=== PATIENT | male | born 1940 | race Caucasian/White ===

== ENCOUNTER → 2021-05-09 | Outpatient (CLI) | payer MEDICARE ==
--- NOTE | 2021-05-09 15:42 | US ---
EXAMINATION TYPE: US scrotum with doppler. Grayscale and color Doppler Duplex imaging performed of derik skinner scrotum. DATE OF EXAM: 05/09/2021 COMPARISON: NONE CLINICAL HISTORY: R10.2 Groin pain, N49.2 Testicle pain. EXAM MEASUREMENTS: Patient denies pain and states that he is here for swelling on left. TESTICLES: Right Testicle: 3.7 x 2.0 x 3.2 cm Left Testicle: 4.2 x 2.6 x 2.7cm EPIDIDYMIS HEAD: Right Epididymis: May be enlarged, there is apparent mass effect on the right testis Left Epididymis: 1.6 cm, small 3mm cyst, excessive increase in vascularity to left epididymis. Doppler performed to assess for testicular vascularity; bilateral color flow and waveforms are seen Left hydroceles: 5.4 x 1.5 x 4.2cm Presence of varicoceles: no Right testicle appears to have multiple masses in transverse plane, however when senior scientist scans in sagittal plane these questionable areas appear to elongate and it becomes unclear whether they are i ntra or extra testicular. These areas also appear superior to testicle. IMPRESSION: There is a left hydrocele present. Correlate for epididymitis on the left. Findings sugge st an extratesticular mass on the right, consider urology consult, CT for better evaluation, consider hernia
--- NOTE | 2021-05-09 16:25 | CT ---
EXAMINATION TYPE: CT abdomen pelvis wo con DATE OF EXAM: 05/09/2021 COMPARISON: Correlation scrotal ultrasound 05/09/2021 HISTORY: 81-year-old male Groin/testicle pain CT DLP: 1059 mGycm. Automated exposure control for dose reduction was used. TECHNIQUE: Contiguous axial scanning of the abdomen and pelvis without IV contrast. Coronal and sagit luciano reconstructions performed. FINDINGS: Heart normal size without pericardial effusion. Emphysematous change in the visualized lower lungs wi thout pleural effusion. There may be a tiny hiatal hernia. Noncontrast appearance of the liver, gallbladder, adrenal glands, spleen, and atrophic pancreas show no gross abnormality. Large cyst exophytic from the right kidney measuring up to 11.7 cm. Symmetric bilateral perinephric edema probably senescent change. Moderate atherosclerotic calcifications abdominal aorta and common iliac arteries. No dilated small bowel, free fluid, or free air. No mesenteric or retroperitoneal lymphadenopathy. Moderate stool burden. No pericolonic inflammatory change. Mid to distal sigmoid diverticulosis. There is an 11.1 x 4.7 cm fat density mass along the right iliopsoas psoas anterior to the right hip. Prominent urinary bladder distention. There is prostatomegaly at 5.2 cm wide. Prominent prostatic ure thra may reflect prior TURP but with soft tissue impression/deformation, refer to coronal image 78 an d axial images 117 and 118. No abnormal fluid collection pelvis or pelvic lymphadenopathy. Moderate left-sided scrotal hydrocele. It appears to be a small right-sided hydrocele. Unable to tracy rly identify an extratesticular or intrascrotal anatomy accurately. Further urology referral will be recommended to exclude any scrotal mass. Bones: Superior endplate Schmorl's node L2. Hypertrophic facet arthropathy with grade 1 retrolisthesi s L3-L4. Moderate degenerative disc disease L5-S1. IMPRESSION: 1. Large exophytic 11.7 cm cyst from the right kidney. Correlate estimate this is causing any sympto ms relating to mass effect. 2. Prostatomegaly (5.2 cm wide) with a prominent prostatic urethra; query any history of prior TURP. However, we note some soft tissue impression deforming the prostatic urethra (coronal image 78). Cor relate with PSA values to exclude underlying prostate cancer. 3. Moderate left-sided scrotal hydrocele and small on the right. Unable to adequately identify any s crotal mass on this noncontrast CT. Recommend urology referral for further assessment. Left-sided epi didymitis is not excluded based on the ultrasound findings. 4. 11.1 x 4.7 cm fat density mass along the right iliopsoas anterior to the right hip. Findings like ly represent a lipoma. Given patient's demographics and lesion size, clinical follow-up to exclude an y enlarging mass as low-grade liposarcoma would be included in the differential. A 6-12 month follow- up CT can be considered as well.
== END | disposition home or self-care (01) ==
LOC: RADUSWWP 14:31
PROVIDERS: ATTEND Family Medicine
DX: N40.0 Benign prostatic hyperplasia without lower urinary tract symptoms (principal); N43.3 Hydrocele, unspecified; R22.41 Localized swelling, mass and lump, right lower limb
CPT/HCPCS: 74176; 76870; 93975

== ENCOUNTER → 2021-09-29 | Outpatient (CLI) | payer MEDICARE ==
--- NOTE | 2021-09-30 07:21 | NM ---
EXAMINATION TYPE: NM DatScan Brain SPECT DATE OF EXAM: 09/29/2021 COMPARISON: CT brain December 15, 2015 HISTORY: Tremors and memory loss. Essential tremor. TECHNIQUE: 10 drops of Lugol's solution was administered 1 hour prior to injection as a thyroid bloc daniel agent. After the administration of 4.35 mCi I-123 Ioflupane DaTscan. Images obtained 3 hours p ost injection. SPECT images of the brain were acquired with axial and coronal reconstructions. FINDINGS: The DaTSCAN demonstrates balanced striatal loss to the caudate and putamina nucleii in the striata. This appearance is consistent with the loss of the pre-synaptic dopaminergic terminals. IMPRESSION: This abnormal appearance is supportive of a clinical diagnosis of DLB, idiopathic PD, Parkinson?s dementia complex, or PS.
== END | disposition home or self-care (01) ==
LOC: RADNMMAIN 10:51
PROVIDERS: ATTEND Psychiatry & Neurology Neurology
DX: G25.0 Essential tremor (principal)
CPT/HCPCS: 78803; A9584

== ENCOUNTER → 2022-05-17 | Outpatient (CLI) | payer MEDICARE ==
--- NOTE | 2022-05-19 06:53 | CT ---
EXAMINATION TYPE: CT ChestAbdPelvis w con DATE OF EXAM: 05/17/2022 COMPARISON: CT abdomen and pelvis May 09, 2021 HISTORY: h/o skin CA, abnormal weight loss, 40 pounds in [address] DLP: 1510 mGycm. Automated Exposure Control for Dose Reduction was Utilized. CONTRAST: CT scan of the thorax, abdomen and pelvis is performed with oral and with IV Contrast, patient inject ed with 100 mL of Isovue 300. FINDINGS: LUNGS: Mild underlying emphysematous changes present. No suspicious new nodules or masses. Stable 9 m m nodule or nodular scarring in the lingula axial image 53 from prior study. No pleural effusion or p neumothorax is seen. MEDIASTINUM: There are no greater than 1 cm hilar or mediastinal lymph nodes. Tiny pericardial effus ion is seen. No cardiomegaly. Coronary artery calcifications are present which is noted marked under lying coronary artery disease. Ascending aorta measures up to 3.6 cm in diameter. There are calcifica tions the level of the mitral and aortic valves identified. LIVER/GB: No significant abnormality is appreciated. PANCREAS: Mild to moderate generalized fat replaced atrophy redemonstrated greatest in the inferior h ead. SPLEEN: No significant abnormality is seen. ADRENALS: No significant abnormality is seen. KIDNEYS: Large partially exophytic thin-walled nearly 13.0 cm cyst coronal image 70 from the right ki dney is redemonstrated with local mass effect pushing the right kidney anteriorly. BOWEL: Oral contrast does not reach level of the terminal ileum making evaluation of distal bowel sli ghtly suboptimal. No suspicious small or large bowel dilatation is seen. Mild to moderate fecal promi nence particularly in the transverse colon. Some diverticula in the redundant sigmoid colon. No CT ev idence for acute diverticulitis. GENITAL ORGANS: Mildly enlarged prostate consistent with BPH redemonstrated. Stable curvilinear low d ensity area in the posterior right prostate axial image 125 likely reflecting TURP type defect in ect atic urethra. LYMPH NODES: No greater than 1cm abdominal or pelvic lymph nodes are appreciated. OSSEOUS STRUCTURES: Multilevel spurring in the spine moderate to severe disc space narrowing affectin g disc phenomenon at lumbosacral junction. Mild height loss along the anterior superior L2 endplate. OTHER: Persistent predominantly fat density oval lesion measuring 9.7 x 5.2 cm and the right iliopsoa s anterior to the right hip coronal image 53 for reference. Overall stability favors benign lipoma. Moderate peripheral calcified plaque of the aorta extends into branch vessels IMPRESSION: No obvious new mass or adenopathy to suggest neoplasm. Other findings as noted above not significantly changed from prior CT .
== END | disposition home or self-care (01) ==
LOC: RADCTMAIN 13:54
PROVIDERS: ATTEND Internal Medicine Critical Care Medicine
DX: R63.4 Abnormal weight loss (principal)
CPT/HCPCS: 82565; 84520; 71260; 74177; 36415; Q9967

== ENCOUNTER 2023-02-23 16:16 | Inpatient (IN) | payer MEDICARE ==
--- NOTE | 2023-02-23 17:24 | ED ---
Fall HPI - General Chief Complaint: Fall Stated Complaint: poss hip fracture Time Seen by Provider: 02/23/23 17:18 Source: patient, EMS, RN notes reviewed, old records reviewed Mode of arrival: EMS Limitations: no limitations - History of Present Illness Initial Comments: This is a 82-year-old male to the ER today. Presents today for evaluation after fall. Increasing left leg pain left hip pain after this fall earlier today. Patient's fall was preceded by an episode of some dizziness and off-balance. But no headache no neck pain did not his head or pass out. No chest pain or shortness of breath. Patient's main concern is a 6 month pain in his left leg and his left hip. Patient is not on blood thinners MD Complaint: fall -: hour(s) Fall From: standing When Fall Occurred: 4-6 hours [employer] Fall Witnessed: no, yes, by family Place Fall Occurred: home Loss of Consciousness: none Prolonged Down Time?: no Symptoms Prior to Fall: none Location - Extremities: Left: Thigh, Leg Severity: severe Severity scale (1-10): 10 Quality: stabbing Context: tripped/slipped Associated Symptoms: denies - Related Data Home Medications Medication Instructions Recorded Confirmed Aspirin EC [Ecotrin Low Dose] 81 mg PO MOWEFR 02/23/23 02/23/23 Atorvastatin [Lipitor] 10 mg PO MOWEFR 02/23/23 02/23/23 Carbidopa-Levodopa 25-100 mg 1 tab PO TID 02/23/23 02/23/23 [Sinemet 25-100 mg] D-Mannose Supplement (Unkown 1 tab PO DAILY 02/23/23 02/23/23 Strength) Ezetimibe [Zetia] 10 mg PO DAILY 02/23/23 02/23/23 Fluticasone Propion/Salmeterol 2 puff INHALATION RT-DAILY@1200 02/23/23 02/23/23 [Fluticasone-Salmeterol 500-50] Ipratropium Nebulized [Atrovent 0.5 mg INHALATION RT-QID PRN 02/23/23 02/23/23 Nebulized 0.2 MG/ML] Magnesium 250 mg PO MOWEFR 02/23/23 02/23/23 Metoprolol Succinate [Metoprolol 12.5 mg PO DAILY 02/23/23 02/23/23 Succinate ER] Midodrine HCl [ProAmantine] 2.5 mg PO TID 02/23/23 02/23/23 Tamsulosin [Flomax] 0.4 mg PO DAILY 02/23/23 02/23/23 Ubidecarenone [Coenzyme Q10] 100 mg PO DAILY 02/23/23 02/23/23 Previous Rx's Medication Instructions Recorded Aspirin [Adult Low Dose Aspirin EC] 81 mg PO BID #60 tab 02/27/23 Docusate [Colace] 100 mg PO BID #60 capsule 02/27/23 HYDROcodone/APAP 7.5-325MG [Julian 1 - 2 each PO Q6HR PRN #42 tab 02/27/23 7.5-325] Ipratropium-Albuterol Nebulize 3 ml INHALATION BID each 02/27/23 [Duoneb 0.5 mg-3 mg/3 ml Soln] Ondansetron [Zofran] 4 mg PO Q8HR PRN #21 tab 02/27/23 Allergies Allergy/AdvReac Type Severity Reaction Status Date / Time No Known Allergies Allergy Verified 02/23/23 20:33 Review of Systems ROS Statement: Those systems with pertinent positive or pertinent negative responses have been documented in the HPI. ROS Other: All systems not noted in ROS Statement are negative. Past Medical History Past Medical History: Hyperlipidemia, Hypertension Additional Past Medical History / Comment(s): Parkinson's disease History of Any Multi-Drug Resistant Organisms: None Reported Additional Past Surgical History / Comment(s): breast removal Smoking Status: Former smoker Past Alcohol Use History: Occasional Past Drug Use History: None Reported General Exam - General Exam Comments Initial Comments: Severe left hip pain Limitations: no limitations General appearance: alert, in no apparent distress, anxious Head exam: Present: atraumatic, normocephalic, normal inspection Eye exam: Present: normal appearance, PERRL, EOMI. Absent: scleral icterus, conjunctival injection, periorbital swelling ENT exam: Present: normal exam, mucous membranes moist Neck exam: Present: normal inspection. Absent: tenderness, meningismus, lymphadenopathy Respiratory exam: Present: normal lung sounds bilaterally. Absent: respiratory distress, wheezes, rales, rhonchi, stridor Cardiovascular Exam: Present: regular rate, normal rhythm, normal heart sounds. Absent: systolic murmur, diastolic murmur, rubs, gallop, clicks GI/Abdominal exam: Present: soft, normal bowel sounds. Absent: distended, tenderness, guarding, rebound, rigid Extremities exam: Present: normal inspection, full ROM, normal capillary refill. Absent: tenderness, pedal edema, joint swelling, calf tenderness Back exam: Present: normal inspection Neurological exam: Present: alert, oriented X3, CN II-XII intact Psychiatric exam: Present: normal affect, normal mood Skin exam: Present: warm, dry, intact, normal color. Absent: rash Course Vital Signs 02/23/23 02/23/23 02/23/23 16:31 18:28 21:04 Temperature 98.0 F 98.1 F Pulse Rate 66 65 74 Respiratory 18 18 18 Rate Blood Pressure 145/77 158/88 163/80 O2 Sat by Pulse 96 96 94 L Oximetry 02/23/23 21:31 Temperature Pulse Rate 75 Respiratory 20 Rate Blood Pressure 108/88 O2 Sat by Pulse Oximetry - Reevaluation(s) Reevaluation #1: 02/23/23 20:16 Medical records reviewed Reevaluation #2: 02/23/23 20:16 Patient has improved pain control here in the ER Reevaluation #3: 02/23/23 20:16 Patient informed results questions answered Reevaluation #4: 02/23/23 20:16 Was pt. sent in by a medical professional or institution ([facility], MUSEUM GUIDE, urgent care, hospital, or fdc...) When possible be specific @ -no Did you speak to anyone other than the patient for history (EMS, parent, family, police, friend...)? What history was obtained from this source @ -no Did you review nursing and triage notes (agree or disagree)? Why? @ -agree Are old charts reviewed (outside hosp., previous admission, EMS record, old EKG, old radiological studies, urgent care reports/EKG's, fdc records)? Report findings @ -yes Differential Diagnosis (chest pain, altered mental status, abdominal pain women, abdominal pain men, vaginal bleeding, weakness, fever, dyspnea, syncope, headache, dizziness, GI bleed, back pain, seizure, CVA, palpatations, mental hea lth, musculoskeletal)? @ -prior EKG interpreted by me (3pts min.). @ -yes X-rays interpreted by me (1pt min.). @ -yes CT interpreted by me (1pt min.). @ -no U/S interpreted by me (1pt. min.). @ -no What testing was considered but not performed or refused? (CT, X-rays, U/S, labs)? Why? @ -none What meds were considered but not given or refused? Why? @ -none Did you discuss the management of the patient with other professionals (professionals i.e. , PA, MUSEUM GUIDE, lab, RT, psych nurse, social psychologist, leather tacker, teacher, senior compliance officer, case management assistant)? Give summary @ -no Was smoking cessation discussed for >3mins.? @ -no Was critical care preformed (if so, how long)? @ -no Were there social determinants of health that impacted care today? How? (Homelessness, low income, unemployed, alcoholism, drug addiction, transportation, low edu. Level, literacy, decrease access to med. care, group home, r ehab)? @ -none Was there de-escalation of care discussed even if they declined (Discuss DNR or withdrawal of care, Hospice)? DNR status @ -no What co-morbidities impacted this encounter? (DM, HTN, Smoking, COPD, CAD, Cancer, CVA, ARF, Chemo, Hep., AIDS, mental health diagnosis, sleep apnea, morbid obesity)? @ -none Was patient admitted / discharged? Hospital course, mention meds given and route , prescriptions, significant lab abnormalities, going to OR and other pertinent info. @ - 82 male to the emergency department today for evaluation of fall trip and fall resulting in left hip fracture. patient to be admitted to Orthopedic evaluation and treatment Admitted Undiagnosed new problem with uncertain prognosis? @ -no Drug Therapy requiring intensive monitoring for toxicity (Heparin, Nitro, Insulin, Cardizem)? @ -no Were any procedures done? @ -no Diagnosis/symptom? @ -Left hip fracture fall Acute, or Chronic, or Acute on Chronic? @ -Acute Uncomplicated (without systemic symptoms) or Complicated (systemic symptoms)? @ -Complicated Side effects of treatment? @ -no Exacerbation, Progression, or Severe Exacerbation? @ -exacerbation Poses a threat to life or bodily function? How? (Chest pain, [place], [place], pneumonia, PE, COPD, DKA, ARF, appy, cholecystitis, CVA, Diverticulitis, Homicidal, Suicidal, threat to staff... and all critical care pts) @ -yes with significant trauma from fall - Consultations Consultation #1: Spoke with orthopedics regarding admission there agreeable Medical Decision Making - Medical Decision Making 82 male to the emergency department today for evaluation of fall trip and fall resulting in left hip fracture. patient to be admitted to Orthopedic evaluation and treatment - Lab Data Result diagrams: 02/26/23 06:42 02/26/23 06:42 Lab Results 02/23/23 02/23/23 02/23/23 Range/Units 18:31 18:31 18:31 WBC 23.1 H (3.8-10.6) k/uL RBC 4.92 (4.30-5.90) m/uL Hgb 14.7 (13.0-17.5) gm/dL Hct 43.9 (39.0-53.0) % MCV 89.3 (80.0-100.0) fL MCH 29.9 (25.0-35.0) pg MCHC 33.4 (31.0-37.0) g/dL RDW 13.4 (11.5-15.5) % Plt Count 243 (150-450) k/uL MPV 8.9 Neutrophils % 85 % Lymphocytes % 9 % Monocytes % 4 % Eosinophils % 1 % Basophils % 0 % Neutrophils # 19.7 H (1.3-7.7) k/uL Lymphocytes # 2.2 (1.0-4.8) k/uL Monocytes # 0.9 (0-1.0) k/uL Eosinophils # 0.2 (0-0.7) k/uL Basophils # 0.0 (0-0.2) k/uL PT 11.3 (9.0-12.0) sec INR 1.1 (<1.2) APTT 22.3 (22.0-30.0) sec Sodium 133 L (137-145) mmol/L Potassium 5.3 H (3.5-5.1) mmol/L Chloride 103 (98-107) mmol/L Carbon Dioxide 24 (22-30) mmol/L Anion Gap 6 mmol/L BUN 27 H (9-20) mg/dL Creatinine 0.76 (0.66-1.25) mg/dL Est GFR (CKD-EPI)AfAm >90 (>60 ml/min/1.73 sqM) Est GFR (CKD-EPI)NonAf 84 (>60 ml/min/1.73 sqM) Glucose 80 (74-99) mg/dL Plasma Lactic Acid Norbert (0.7-2.0) mmol/L Calcium 8.9 (8.4-10.2) mg/dL Phosphorus 3.1 (2.5-4.5) mg/dL Magnesium 2.2 (1.6-2.3) mg/dL Total Bilirubin 1.4 H (0.2-1.3) mg/dL AST 42 (17-59) U/L ALT 17 (4-49) U/L Alkaline Phosphatase 54 (38-126) U/L Troponin I (0.000-0.034) ng/mL Total Protein 6.4 (6.3-8.2) g/dL Albumin 3.6 (3.5-5.0) g/dL Urine Color Urine Appearance (Clear) Urine pH (5.0-8.0) Ur Specific [place] (1.001-1.035) Urine Protein (Negative) Urine Glucose (UA) (Negative) Urine Ketones (Negative) Urine Blood (Negative) Urine Nitrite (Negative) Urine Bilirubin (Negative) Urine Urobilinogen (<2.0) mg/dL Ur Leukocyte Esterase (Negative) 02/23/23 02/23/23 02/23/23 Range/Units 18:31 18:31 18:31 WBC (3.8-10.6) k/uL RBC (4.30-5.90) m/uL Hgb (13.0-17.5) gm/dL Hct (39.0-53.0) % MCV (80.0-100.0) fL MCH (25.0-35.0) pg MCHC (31.0-37.0) g/dL RDW (11.5-15.5) % Plt Count (150-450) k/uL MPV Neutrophils % % Lymphocytes % % Monocytes % % Eosinophils % % Basophils % % Neutrophils # (1.3-7.7) k/uL Lymphocytes # (1.0-4.8) k/uL Monocytes # (0-1.0) k/uL Eosinophils # (0-0.7) k/uL Basophils # (0-0.2) k/uL PT (9.0-12.0) sec INR (<1.2) APTT (22.0-30.0) sec Sodium (137-145) mmol/L Potassium (3.5-5.1) mmol/L Chloride (98-107) mmol/L Carbon Dioxide (22-30) mmol/L Anion Gap mmol/L BUN (9-20) mg/dL Creatinine (0.66-1.25) mg/dL Est GFR (CKD-EPI)AfAm (>60 ml/min/1.73 sqM) Est GFR (CKD-EPI)NonAf (>60 ml/min/1.73 sqM) Glucose (74-99) mg/dL Plasma Lactic Acid Norbert 1.3 (0.7-2.0) mmol/L Calcium (8.4-10.2) mg/dL Phosphorus (2.5-4.5) mg/dL Magnesium (1.6-2.3) mg/dL Total Bilirubin (0.2-1.3) mg/dL AST (17-59) U/L ALT (4-49) U/L Alkaline Phosphatase (38-126) U/L Troponin I 0.017 (0.000-0.034) ng/mL Total Protein (6.3-8.2) g/dL Albumin (3.5-5.0) g/dL Urine Color Yellow Urine Appearance Clear (Clear) Urine pH 5.5 (5.0-8.0) Ur Specific [place] 1.020 (1.001-1.035) Urine Protein Negative (Negative) Urine Glucose (UA) Negative (Negative) Urine Ketones Negative (Negative) Urine Blood Negative (Negative) Urine Nitrite Negative (Negative) Urine Bilirubin Negative (Negative) Urine Urobilinogen <2.0 (<2.0) mg/dL Ur Leukocyte Esterase Negative (Negative) - EKG Data -: EKG Interpreted by Me (EKG sinus 67 UT 167 QRS 138 QTc 410) - Radiology Data Radiology results: report reviewed (Chest x-ray negative for acute disease x-ray left hip positive fracture), image reviewed Disposition Clinical Impression: Fall, Closed left hip fracture Disposition: ADMITTED IP TO THIS [facility] Condition: Good Is patient prescribed a controlled substance at d/c from ED?: No Time of Disposition: :00
--- NOTE | 2023-02-23 17:55 | XR ---
EXAMINATION TYPE: XR Hip LT and AP Pelvis DATE OF EXAM: 02/23/2023 5:44 PM INDICATION: Patient age:Male; 82 years old; Reason for study: fall; PHH. COMPARISON: None. TECHNIQUE: The left hip was examined in the frontal and lateral projections and a AP pelvis. FINDINGS/IMPRESSION: Proximal left femoral neck fracture with mild displacement. The remainder of the osseous structures a ppear intact.
--- NOTE | 2023-02-23 17:58 | XR ---
EXAMINATION TYPE: XR chest 1V DATE OF EXAM: 02/23/2023 5:44 PM COMPARISON: Chest radiographs from 12/15/2015. TECHNIQUE: XR chest 1V Frontal view of the chest. CLINICAL INDICATION:Male, 82 years old with history of fall; FINDINGS: Lungs/Pleura: There is flattening of the diaphragm with increased lucency of the lungs. No evidence o f pneumothorax, pleural effusion or focal consolidation. Pulmonary vascularity: Unremarkable. Heart/mediastinum: Cardiomediastinal silhouette is unremarkable. Musculoskeletal: No acute osseous pathology. IMPRESSION: 1. No acute cardiopulmonary disease process. 2. COPD changes.
[2023-02-23] MEDS ORDERED: SODIUM CHLORIDE 0.9% 1,000 ML IV STA (18:23)
[2023-02-23] MEDS ORDERED: ONDANSETRON 4 MG/2 ML VIAL IVP STA (18:23)
[2023-02-23] MEDS ORDERED: MORPHINE SULFATE 4 MG/ML SYRINGE IV STA (18:23)
[2023-02-23 19:04] LABS: Basophils % (A) 0 %; Eosinophils # (A) 0.2 k/uL (0-0.7); Eosinophils % (A) 1 %; HCT 43.9 % (39.0-53.0); HGB 14.7 gm/dL (13.0-17.5); Lymphocytes # (A) 2.2 k/uL (1.0-4.8); Lymphocytes % (A) 9 %; MCH 29.9 pg (25.0-35.0); MCHC 33.4 g/dL (31.0-37.0); MCV 89.3 fL (80.0-100.0); Mean Platelet Volume 8.9; Monocytes # (A) 0.9 k/uL (0-1.0); Monocytes % (A) 4 %; Neutrophils # (A) 19.7 k/uL (1.3-7.7); Neutrophils % (A) 85 %; Platelet Count 243 k/uL (150-450); RBC 4.92 m/uL (4.30-5.90); RDW 13.4 % (11.5-15.5); WBC 23.1 k/uL (3.8-10.6)
[2023-02-23 19:12] LABS: ALT 17 U/L (4-49); AST 42 U/L (17-59); African American GFR (CKD) >90 (>60 ml/min/1.73 sqM); Albumin 3.6 g/dL (3.5-5.0); Alkaline Phosphatase 54 U/L (38-126); Anion Gap 6 mmol/L; Blood Urea Nitrogen 27 mg/dL (9-20); Calcium 8.9 mg/dL (8.4-10.2); Carbon Dioxide 24 mmol/L (22-30); Chloride 103 mmol/L (98-107); Glucose 80 mg/dL (74-99); Magnesium 2.2 mg/dL (1.6-2.3); Non-African American GFR(CKD) 84 (>60 ml/min/1.73 sqM); Phosphorus 3.1 mg/dL (2.5-4.5); Sodium 133 mmol/L (137-145); Total Bilirubin 1.4 mg/dL (0.2-1.3); Total Protein 6.4 g/dL (6.3-8.2)
[2023-02-23 19:14] LABS: INR 1.1 (<1.2); Partial Thromboplastin Time 22.3 sec (22.0-30.0); Potassium 5.3 mmol/L (3.5-5.1); Prothrombin Time 11.3 sec (9.0-12.0)
[2023-02-23 19:19] LABS: Appearance,Urine Clear (Clear); Bilirubin,Urine Negative (Negative); Blood,Urine Negative (Negative); Color,Urine Yellow; Glucose,Urine (UA) Negative (Negative); Ketones,Urine Negative (Negative); Leukocyte Esterase,Urine Negative (Negative); Nitrite,Urine Negative (Negative); PH, Urine 5.5 (5.0-8.0); Protein,Urine Negative (Negative); Urobilinogen,Urine <2.0 mg/dL (<2.0)
[2023-02-23] MEDS ORDERED: NALOXONE 0.4 MG/ML 1 ML VIAL IV PRN (20:13)
[2023-02-23] MEDS ORDERED: ONDANSETRON 4 MG/2 ML VIAL IVP PRN (20:13)
[2023-02-23] MEDS ORDERED: MORPHINE SULFATE 4 MG/ML SYRINGE IV PRN (20:13)
[2023-02-23] MEDS: SODIUM CHLORIDE 0.9% 1,000 ML IV SCH (20:27)
[2023-02-23] MEDS ORDERED: HYDROmorphone 1 MG/ML 1 ML SYRINGE IVP STA (21:13)
[2023-02-24] MEDS: HYDROmorphone 1 MG/ML 1 ML SYRINGE IVP PRN ×3 (06:14→18:12)
[2023-02-24] MEDS: PANTOPRAZOLE 40 MG/10 ML VIAL IV SCH (08:15)
[2023-02-24 09:21] LABS: Basophils # (A) 0.06 X 10*3/uL (0.00-0.10); Basophils % (A) 0.4 %; Eosinophils # (A) 0.29 X 10*3/uL (0.04-0.35); Eosinophils % (A) 1.7 %; HGB 14.2 d/dL (13.0-17.0); Lymphocytes # (A) 1.88 X 10*3/uL (0.90-5.00); MCH 29.2 pg (27.0-32.0); MCHC 32.3 d/dL (32.0-37.0); MCV 90.5 FL (80.0-97.0); Mean Platelet Volume 10.9 FL (9.5-12.2); Monocytes # (A) 1.08 X 10*3/uL (0.20-1.00); Monocytes % (A) 6.3 %; NRBC Per 100 WBC 0 X 10*3/uL (0.00-0.01); Neutrophils # (A) 13.66 X 10*3/uL (1.80-7.70); Platelet Count 253 X 10*3/uL (140-440); RBC 4.86 X 10*6/uL (4.40-5.60); RDW 13.5 % (11.5-14.5); WBC 17.07 X 10*3/uL (4.50-10.00)
[2023-02-24] MEDS ORDERED: IPRATROPIUM 0.5 MG/2.5 ML NEBU INHALATION PRN (09:58)
[2023-02-24] MEDS ORDERED: IPRATROPIUM-ALBUTEROL 3 ML NEB INHALATION PRN (10:20)
[2023-02-24 10:23] LABS: ALT 16 U/L (10-49); AST 19 U/L (14-35); Albumin 3.5 d/dL (3.8-4.9); Albumin/Globulin Ratio 2.06 Ratio (1.60-3.17); Alkaline Phosphatase 67 U/L (41-126); BUN/Creat Ratio 21.67 Ratio (12.00-20.00); Blood Urea Nitrogen 19.5 mg/dL (9.0-27.0); Calcium 8.9 mg/dL (8.7-10.3); Chloride 106 mmol/L (96-109); Globulin 1.7 d/dL (1.6-3.3); Glucose 69 mg/dL (70-110); Magnesium 2.3 mg/dL (1.5-2.4); Phosphorus 3.3 mg/dL (2.4-5.1); Potassium 4.3 mmol/L (3.5-5.5); Sodium 140 mmol/L (135-145); Total Bilirubin 0.8 mg/dL (0.3-1.2); Total Protein 5.2 d/dL (6.2-8.2)
[2023-02-24] MEDS: SYMBICORT 160-4.5 MCG INHALER INHALATION SCH (10:25)
[2023-02-24] MEDS: IPRATROPIUM-ALBUTEROL 3 ML NEB INHALATION SCH ×3 (10:34→21:04)
[2023-02-24] MEDS: SODIUM CHLORIDE 0.9% 1,000 ML IV SCH (10:40)
[2023-02-24] MEDS: CARBIDOPA-LEVODOPA 25-100 MG 1 EACH TAB PO SCH ×3 (10:54→22:37)
--- NOTE | 2023-02-24 10:59 | P.HPOR ---
History of Present Illness H&P Date: 02/24/23 This is an 82-year-old male who is admitted for left hip fracture. Patient is seen and evaluated at bedside today with Dr. Quiros. Patient states that he fell at home in his kitchen. Patient states that he normally does not need any assistive devices to ambulate and lives at home with his . Patient's past medical history is significant for COPD, hyperlipidemia, hypertension and Parkinson's disease. Patient denies any fever/chills, numbness, weakness, tingling, abdominal pain, shortness of breath or chest pain. Review of Systems See HPI. Past Medical History Past Medical History: Cancer, COPD, Hyperlipidemia, Hypertension Additional Past Medical History / Comment(s): Parkinson's disease History of Any Multi-Drug Resistant Organisms: None Reported Past Surgical History: Heart Catheterization Additional Past Surgical History / Comment(s): breast removal Smoking Status: Former smoker Past Alcohol Use History: Occasional Past Drug Use History: None Reported Medications and Allergies Home Medications Medication Instructions Recorded Confirmed Type Aspirin EC [Ecotrin Low Dose] 81 mg PO MOWEFR 02/23/23 02/23/23 History Atorvastatin [Lipitor] 10 mg PO MOWEFR 02/23/23 02/23/23 History Carbidopa-Levodopa 25-100 mg 1 tab PO TID 02/23/23 02/23/23 History [Sinemet 25-100] D-Mannose Supplement (Unkown 1 tab PO DAILY 02/23/23 02/23/23 History Strength) Ezetimibe [Zetia] 10 mg PO DAILY 02/23/23 02/23/23 History Fluticasone Propion/Salmeterol 2 puff INHALATION RT-DAILY@1200 02/23/23 02/23/23 History [Fluticasone-Salmeterol 500-50] Ipratropium Nebulized [Atrovent 0.5 mg INHALATION RT-QID PRN 02/23/23 02/23/23 History Nebulized 0.2 MG/ML] Magnesium 250 mg PO MOWEFR 02/23/23 02/23/23 History Metoprolol Succinate [Metoprolol 12.5 mg PO DAILY 02/23/23 02/23/23 History Succinate ER] Midodrine HCl [ProAmantine] 2.5 mg PO TID 02/23/23 02/23/23 History Tamsulosin [Flomax] 0.4 mg PO DAILY 02/23/23 02/23/23 History Ubidecarenone [Coenzyme Q10] 100 mg PO DAILY 02/23/23 02/23/23 History Allergies Allergy/AdvReac Type Severity Reaction Status Date / Time No Known Allergies Allergy Verified 02/23/23 20:33 Physical Examination On exam patient is lying comfortably in no acute distress. Patient is alert and oriented 3. Left leg: The left lower extremity is shortened and externally rotated. Skin is intact. There is minimal swelling. The left lower extremity is warm and well perfused. Patient has full range of motion of the left foot and ankle. Calf is soft and nontender to palpation. Neurovascular status and circulatory status are intact. Exams of the right lower extremity, bilateral upper extremities, head and neck are within normal limits. Head is normocephalic and atraumatic. Results X-rays of the left hip and pelvis reveal a left femoral neck fracture. - Labs Labs: Abnormal Lab Results - Last 24 Hours (Table) 02/23/23 02/23/23 02/24/23 Range/Units 18:31 18:31 04:48 WBC 23.1 H 17.07 H (3.8-10.6) k/uL Neutrophils # 19.7 H 13.66 H (1.3-7.7) k/uL Monocytes # 1.08 H (0.20-1.00) X 10*3/uL Sodium 133 L (137-145) mmol/L Potassium 5.3 H (3.5-5.1) mmol/L BUN 27 H (9-20) mg/dL BUN/Creatinine Ratio (12.00-20.00) Ratio Glucose (70-110) mg/dL Total Bilirubin 1.4 H (0.2-1.3) mg/dL Total Protein (6.2-8.2) d/dL Albumin (3.8-4.9) d/dL 02/24/23 Range/Units 04:48 WBC (3.8-10.6) k/uL Neutrophils # (1.3-7.7) k/uL Monocytes # (0.20-1.00) X 10*3/uL Sodium (137-145) mmol/L Potassium (3.5-5.1) mmol/L BUN (9-20) mg/dL BUN/Creatinine Ratio 21.67 H (12.00-20.00) Ratio Glucose 69 L (70-110) mg/dL Total Bilirubin (0.2-1.3) mg/dL Total Protein 5.2 L (6.2-8.2) d/dL Albumin 3.5 L (3.8-4.9) d/dL H & H 02/23/23 02/24/23 Range/Units 18:31 04:48 Hgb 14.7 14.2 (13.0-17.5) gm/dL Hct 43.9 44.0 (39.0-53.0) % Coagulation 02/23/23 Range/Units 18:31 INR 1.1 (<1.2) Result Diagrams: 02/24/23 04:48 02/24/23 04:48 Assessment and Plan (1) Closed left hip fracture Current Visit: Yes Status: Acute Code(s): S72.002A - FRACTURE OF UNSP PART OF NECK OF LEFT FEMUR, INIT SNOMED Code(s): 185516460 (2) Fall Current Visit: Yes Status: Acute Code(s): W19.XXXA - UNSPECIFIED FALL, INITIAL ENCOUNTER SNOMED Code(s): 0540997 Plan: 1. Patient is to be NPO after midnight. 2. Continue pain control. 3. Appreciate input from internal medicine. 4. Planning for a left hip hemiarthroplasty on 02/25/[address] Quiros pending medical clearance and patient consent.
[2023-02-24] MEDS ORDERED: IPRATROPIUM-ALBUTEROL 3 ML NEB INHALATION SCH (12:00)
--- NOTE | 2023-02-24 14:33 | P.CONS ---
History of Present Illness - Reason for Consult Consult date: 02/24/23 - Chief Complaint Status post fall hip fracture - History of Present Illness * 82-year-old gentleman with past medical history of Parkinson, hypertension, hyperlipidemia, COPD presented to the emergency department after a fall and left hip fracture * Patient said he was in kitchen when he turned around and fell have gait imbalance. Patient says normally he is pretty independent and does not use any devices * Workup initiated in ER included x-ray of hip and chest x-ray, x-ray hip showed left femur fracture * Basic metabolic panel obtained showed mild hyponatremia and hyperkalemia * CBC obtained showed white cell count of 23.1 likely reactive * Patient admitted under orthopedic service for left hip fracture repair REVIEW OF SYSTEMS: Left hip pain CONSTITUTIONAL: No fever, no malaise, no fatigue. HEENT: No recent visual problems or hearing problems. Denied any sore throat. CARDIOVASCULAR: No chest pain, orthopnea, PND, no palpitations, no syncope. PULMONARY: No shortness of breath, no cough, no hemoptysis. GASTROINTESTINAL: No diarrhea, no nausea, no vomiting, no abdominal pain. NEUROLOGICAL: No headaches, no weakness, no numbness. HEMATOLOGICAL: Denies any bleeding or petechiae. GENITOURINARY: Denies any burning micturition, frequency, or urgency. MUSCULOSKELETAL/RHEUMATOLOGICAL: Left hip pain ENDOCRINE: Denies any polyuria or polydipsia. The rest of the 14-point review of systems is negative. PHYSICAL EXAMINATION: GENERAL: The patient is alert and oriented x3, not in any acute distress. Well developed, well nourished. HEENT: Pupils are round and equally reacting to light. EOMI. No scleral icterus. No conjunctival pallor. Normocephalic, atraumatic. No pharyngeal erythema. No thyromegaly. CARDIOVASCULAR: S1 and S2 present. No murmurs, rubs, or gallops. PULMONARY: Chest is clear to auscultation, no wheezing or crackles. ABDOMEN: Soft, nontender, nondistended, normoactive bowel sounds. No palpable o rganomegaly. MUSCULOSKELETAL: Edema left hip, range of motion limited EXTREMITIES: No cyanosis, clubbing, or pedal edema. NEUROLOGICAL: Gross neurological examination did not reveal any focal deficits. SKIN: No rashes. Past Medical History Past Medical History: Cancer, COPD, Hyperlipidemia, Hypertension Additional Past Medical History / Comment(s): Parkinson's disease History of Any Multi-Drug Resistant Organisms: None Reported Past Surgical History: Heart Catheterization Additional Past Surgical History / Comment(s): breast removal Smoking Status: Former smoker Past Alcohol Use History: Occasional Past Drug Use History: None Reported Medications and Allergies Home Medications Medication Instructions Recorded Confirmed Type Aspirin EC [Ecotrin Low Dose] 81 mg PO MOWEFR 02/23/23 02/23/23 History Atorvastatin [Lipitor] 10 mg PO MOWEFR 02/23/23 02/23/23 History Carbidopa-Levodopa 25-100 mg 1 tab PO TID 02/23/23 02/23/23 History [Sinemet 25-100] D-Mannose Supplement (Unkown 1 tab PO DAILY 02/23/23 02/23/23 History Strength) Ezetimibe [Zetia] 10 mg PO DAILY 02/23/23 02/23/23 History Fluticasone Propion/Salmeterol 2 puff INHALATION RT-DAILY@1200 02/23/23 02/23/23 History [Fluticasone-Salmeterol 500-50] Ipratropium Nebulized [Atrovent 0.5 mg INHALATION RT-QID PRN 02/23/23 02/23/23 History Nebulized 0.2 MG/ML] Magnesium 250 mg PO MOWEFR 02/23/23 02/23/23 History Metoprolol Succinate [Metoprolol 12.5 mg PO DAILY 02/23/23 02/23/23 History Succinate ER] Midodrine HCl [ProAmantine] 2.5 mg PO TID 02/23/23 02/23/23 History Tamsulosin [Flomax] 0.4 mg PO DAILY 02/23/23 02/23/23 History Ubidecarenone [Coenzyme Q10] 100 mg PO DAILY 02/23/23 02/23/23 History Allergies Allergy/AdvReac Type Severity Reaction Status Date / Time No Known Allergies Allergy Verified 02/23/23 20:33 Physical Exam Vitals: Vital Signs Temp Pulse Pulse Resp BP BP Pulse Ox 02/24/23 13:27 98.3 F 76 16 113/50 90 L 02/24/23 10:36 80 02/24/23 10:27 76 08/19/23 08:21 95 02/24/23 07:00 98.1 F 74 16 139/70 94 L 02/24/23 02:00 99.0 F 67 16 137/65 96 02/23/23 21:31 75 20 108/88 02/23/23 21:04 98.1 F 74 18 163/80 94 L 02/23/23 18:28 65 18 158/88 96 02/23/23 16:31 98.0 F 66 18 145/77 96 Intake and Output 02/23/23 02/24/23 02/24/23 22:59 06:59 14:59 Intake Total 600 Output Total 375 Balance 600 -375 Intake: Intake, IV Titration 600 Amount Sodium Chloride 0.9% 1, 600 000 ml @ 75 mls/hr IV . [id number] [facility] Rx#:[id number] Output: Urine 375 Other: Voiding Method Urinal # Voids 2 Weight 70.76 kg Results CBC & Chem 7: 02/24/23 04:48 02/24/23 04:48 Labs: Abnormal Lab Results - Last 24 Hours (Table) 02/23/23 02/23/23 02/24/23 Range/Units 18:31 18:31 04:48 WBC 23.1 H 17.07 H (3.8-10.6) k/uL Neutrophils # 19.7 H 13.66 H (1.3-7.7) k/uL Monocytes # 1.08 H (0.20-1.00) X 10*3/uL Sodium 133 L (137-145) mmol/L Potassium 5.3 H (3.5-5.1) mmol/L BUN 27 H (9-20) mg/dL BUN/Creatinine Ratio (12.00-20.00) Ratio Glucose (70-110) mg/dL Total Bilirubin 1.4 H (0.2-1.3) mg/dL Total Protein (6.2-8.2) d/dL Albumin (3.8-4.9) d/dL 02/24/23 Range/Units 04:48 WBC (3.8-10.6) k/uL Neutrophils # (1.3-7.7) k/uL Monocytes # (0.20-1.00) X 10*3/uL Sodium (137-145) mmol/L Potassium (3.5-5.1) mmol/L BUN (9-20) mg/dL BUN/Creatinine Ratio 21.67 H (12.00-20.00) Ratio Glucose 69 L (70-110) mg/dL Total Bilirubin (0.2-1.3) mg/dL Total Protein 5.2 L (6.2-8.2) d/dL Albumin 3.5 L (3.8-4.9) d/dL Assessment and Plan Assessment: Assessment and plan * Status post fall left hip fracture * Parkinson disease * COPD * Hypertension * BPH * X-ray hip reviewed, orthopedic consulted plan for surgical intervention * Continue patient on Sinemet for Parkinson * Continue metoprolol monitor blood pressure * Continue patient on Flomax monitor for urinary retention * Will need PT OT evaluation post surgery
[2023-02-24] MEDS: MIDODRINE 5 MG TAB PO SCH ×2 (16:53→22:41)
[2023-02-25] MEDS: SODIUM CHLORIDE 0.9% 1,000 ML IV SCH ×3 (01:42→14:35)
[2023-02-25] MEDS ORDERED: LACTATED RINGERS 1,000 ML IV ONE (07:45)
[2023-02-25] MEDS ORDERED: ONDANSETRON 4 MG/2 ML VIAL IVP ONE (07:54)
[2023-02-25] MEDS ORDERED: DEXAMETHASONE SOD PHOSPHATE 4 MG/ML 1 ML VIAL IVP ONE (07:54)
[2023-02-25] MEDS: IPRATROPIUM-ALBUTEROL 3 ML NEB INHALATION SCH ×4 (07:57→20:28)
[2023-02-25] MEDS ORDERED: SODIUM CHLORIDE 0.9% 100 ML BAG ONE (08:08)
[2023-02-25] MEDS ORDERED: ceFAZolin 1,000 MG VIAL ONE (08:08)
[2023-02-25] MEDS ORDERED: KETAMINE 10 MG/ML 20 ML VIAL ONE (08:08)
[2023-02-25] MEDS ORDERED: MIDAZOLAM 2 MG/2 ML VIAL ONE (08:08)
[2023-02-25] MEDS ORDERED: TRANEXAMIC 1,000 MG/100ML-NACL PREMIX BAG ONE (08:08)
[2023-02-25] MEDS ORDERED: HYDROmorphone (PF) 1 MG/ML ONE (08:08)
[2023-02-25] MEDS ORDERED: diphenhydrAMINE 50 MG/ML 1 ML VIAL ONE (08:08)
[2023-02-25] MEDS ORDERED: SODIUM CHLORIDE 0.9% 100 ML with ceFAZolin 2,000 MG IV ONE ×2 (08:13)
[2023-02-25] MEDS ORDERED: ONDANSETRON 4 MG/2 ML VIAL IVP PRN (08:17)
[2023-02-25] MEDS ORDERED: MAGNESIUM HYDROXIDE 2,400 MG/30 ML CUP PO PRN (08:17)
[2023-02-25] MEDS ORDERED: NALOXONE 0.4 MG/ML 1 ML VIAL IV PRN (08:17)
[2023-02-25] MEDS ORDERED: HYDROmorphone 0.5 MG/0.5 ML SYRINGE IVP PRN ×3 (08:17)
[2023-02-25] MEDS ORDERED: TRANEXAMIC 1,000 MG/100ML-NACL 1,000 MG in SALINE 1 100ML.BAG IVPB ONE ×2 (08:33→08:34)
--- NOTE | 2023-02-25 10:44 | XR ---
EXAMINATION TYPE: XR Hip Limited LT DATE OF EXAM: 02/25/2023 10:39 AM INDICATION: Patient age:Male; 82 years old; Reason for study: Status post hip surgery, assess surgical alignment; [facility]. COMPARISON: Left hip radiograph 02/23/2023 TECHNIQUE: The left hip was examined in frontal projection. FINDINGS: Postsurgical changes from total left hip arthroplasty. Hardware appears intact with appropr iate alignment. Associated soft tissue gas and edema. No acute fracture or dislocation. IMPRESSION: Postsurgical changes from left hip arthroplasty. Hardware appears intact with appropriate alignment.
[2023-02-25] MEDS: SYMBICORT 160-4.5 MCG INHALER INHALATION SCH (11:24)
--- NOTE | 2023-02-25 11:26 | OP ---
OPERATIVE REPORT DATE OF SERVICE : 02/25/2023 PEDIATRIC IMMUNOLOGIST: Mali Girffin PA-C. PREOPERATIVE DIAGNOSIS: Left displaced femoral neck fracture. POSTOPERATIVE DIAGNOSIS: Left displaced femoral neck fracture. OPERATION: Left hip hemiarthroplasty. ANESTHESIA: Spinal with sedation. ESTIMATED BLOOD LOSS: 75 mL. TOURNIQUET: None. DRAINS: None. COMPLICATIONS: None apparent. DISPOSITION: Postanesthesia care unit. INDICATIONS: Sahil is a very pleasant 82-year-old male, who fell at home onto his left side. He had immediate pain in the left hip and inability to ambulate. He is a household ambulator. He lives at home with his . He was brought to [facility] via ambulance. Workup including x-rays revealed a displaced femoral neck fracture. He was admitted to my service. Preoperative workup and clearance were done by the house medical staff. Recommendation was to proceed with hemiarthroplasty of the left hip. The risks of procedure were discussed with him and his in detail. These risks included, but were not limited to, risk of infection, nerve damage, bleeding, pain, and a small risk of deep vein thrombosis which could lead to fatal pulmonary embolism. Further risks include possibility for deep infection, instability in the hip, and periprosthetic fracture. All of these questions with regard to the risks of procedure were answered to his and his 's satisfaction. An appropriate informed consent was obtained. DESCRIPTION OF PROCEDURE: The patient identified in the preoperative holding area. Surgical site was marked by both patient and myself. He was given 2 g of Ancef IV for prophylactic purposes. He was then transported to the operative suite. He was placed supine on the operating room table. A spinal anesthetic was then administered and dosed per the Anesthesia Department without apparent complication. The patient was then placed into the right lateral decubitus position, well padded in preparation for surgery. A very well-padded axillary roll was placed. His legs were appropriately padded as well. The patient's left lower extremity was then prepped and draped in usual sterile fashion. Standard surgical pause was then undertaken to ensure that we were operating the correct site and that appropriate preoperative antibiotics had been given. All staff in the room were in agreement and we proceeded. The tip of the greater trochanter was marked with a surgical pen. A planned 10 to 15 cm incision was centered over the tip of the greater trochanter in line with the shaft of the femur was then made then made with a surgical pen. The incision was then made with a 10-blade scalpel. Dissection was carried down sharply to the tensor fascia. Hemostasis was achieved with electrocautery. The tensor fascia was then incised in line with the incision. A Charnley retractor was then placed. This gave exposure to the underlying gluteus medius and proximal femur. The raphe between the anterior one-third and posterior two-thirds of the gluteus medius was identified. I then proceeded with an anterolateral Hardinge-type approach. The gluteus medius, gluteus minimus, and anterior capsule were then taken off in a sleeve anteriorly. This gave me good exposure to the femoral neck. I then utilized the cutting guide and with a reciprocating saw freshened the femoral neck cut. I then removed the [place] femoral head with a corkscrew. This measured 54 mm. A 54 mm trial head was then placed and then the fit was confirmed at this time. The acetabulum was then inspected. The acetabular cartilage was in good condition. Decision was made at that point to proceed with a hemiarthroplasty. I then proceeded with preparation of the proximal femur. The dust box tender was then utilized to gain access to the proximal femur. I then proceeded with a starting reamer. I then incrementally increased up until a size 13 reamer. We then proceeded with broaching. I started with a size 8 broach. Each broaching was done in approximately 15 degrees of anteversion. I then broached up to a size 12 broach. A 13 was fairly tight. At this point, given his age and bone quality, I made the decision to proceed with cementing a size 11 femoral component. The canal was then prepared. We utilized a scrub brush and was thoroughly irrigated. We did trial prior to placing the real stem. We trialed with a -6 neck. This was a fairly tight fit. A good range of motion was stable throughout a full range of motion. A -3 neck was quite tight. We were unable to reduce it, so we decided to proceed with a -6 neck. We proceeded then to cement the real stem. A medullary canal stopper was then placed at the appropriate depth. We then thoroughly irrigated the canal. It was then dried. I then had the offset press assistant prepare 2 packs of antibiotic bone cement on the back table. This was then placed into the gun. I then proceeded to fill the proximal femoral canal with cement. Given his age and pulmonary status, we did not pressurize the cement fully. I pressurized just with my thumb. He did not have any adverse pulmonary events during cementing. I then cemented the real stem. It was a Negra collared interlock size 11 stem. It was then cemented in approximately 15 degrees of anteversion. Pressure was held on the stem until the cement had hardened. I then again inspected the acetabulum to ensure there were not any loose cement pieces in the acetabulum. I then had the client support representative open a -6 neck and a 54 mm monopolar head. This was assembled on the back table. It was then impacted onto the real stem with a dry Chapman taper. The hip was then reduced. Again, it was a relatively difficult reduction. It was very stable throughout a full range of motion. The leg lengths were equal. It was stable throughout a full range of motion. We then proceeded with closure. The wound was thoroughly irrigated with sterile saline solution with antibiotic added via pulse lavage. Irrisept antiseptic solution was also utilized. I then repaired the gluteus medius, minimus back to the greater trochanter utilizing interrupted transosseous #5 Ethibond sutures. The raphe between the anterior one-third and posterior two-thirds of the gluteus medius was then repaired with 0 Vicryl interrupted suture. The vastus lateralis fascia was repaired with 0 Vicryl interrupted suture. Again, the wound was thoroughly irrigated. The tensor fascia was then reapproximated with 0 Vicryl interrupted suture. It was then closed tightly with #2 Quill suture. Again, it was thoroughly irrigated. The subcutaneous tissue was closed with 2-0 Vicryl interrupted suture and the skin was closed with running 3-0 Quill suture. Dermabond was applied to the incision. Sterile compressive dressing was applied. The patient was then placed into a hip abduction brace. All sponge and needle counts were deemed correct prior to closure. The patient tolerated the procedure without apparent complication. He was transferred to the recovery room in stable condition. MMODL / IJN: [id number] /
[2023-02-25] MEDS: EZETIMIBE 10 MG TAB PO SCH (11:48)
[2023-02-25] MEDS: CARBIDOPA-LEVODOPA 25-100 MG 1 EACH TAB PO SCH ×3 (11:48→20:56)
[2023-02-25] MEDS: ASPIRIN 325 MG TAB PO SCH ×2 (11:48→20:56)
[2023-02-25] MEDS: TAMSULOSIN 0.4 MG CAP.ER.24H PO SCH (11:48)
[2023-02-25] MEDS: PANTOPRAZOLE 40 MG/10 ML VIAL IV SCH (11:48)
[2023-02-25] MEDS: METOPROLOL SUCCINATE (ER) 25 MG TAB.ER.24H PO SCH (11:48)
[2023-02-25] MEDS: MIDODRINE 5 MG TAB PO SCH ×3 (11:56→22:15)
[2023-02-25] MEDS: HYDROcodone/APAP 7.5-325MG 1 EACH TAB PO PRN ×2 (12:47→21:06)
--- NOTE | 2023-02-25 12:56 | P.PN ---
Subjective Progress Note Date: 02/25/23 * 82-year-old gentleman with past medical history of Parkinson, hypertension, hyperlipidemia, COPD presented to the emergency department after a fall and left hip fracture * Patient said he was in kitchen when he turned around and fell have gait imbalance. Patient says normally he is pretty independent and does not use any devices * Workup initiated in ER included x-ray of hip and chest x-ray, x-ray hip showed left femur fracture * Basic metabolic panel obtained showed mild hyponatremia and hyperkalemia * CBC obtained showed white cell count of 23.1 likely reactive * Patient admitted under orthopedic service for left hip fracture repair * 02/25/2023 : Chart reviewed. Patient taken to our care plan discussed with no overnight events Objective - Vital Signs Vital signs: Vital Signs Temp 98.2 F 02/25/23 10:02 Pulse 75 02/25/23 11:36 Resp 16 02/25/23 10:32 BP 137/59 02/25/23 10:32 Pulse Ox 98 02/25/23 10:32 FiO2 Intake & Output 02/24/23 02/25/23 02/25/23 18:59 06:59 18:59 Intake Total 1140 650 Output Total 625 775 75 Balance -625 365 575 Weight 70.76 kg Intake: IV 650 Intake, IV Titration 900 Amount Sodium Chloride 0.9% 1, 900 000 ml @ 75 mls/hr IV . [id number] [facility] Rx#:[id number] Oral 240 Output: Urine 625 775 Estimated Blood Loss 75 Other: Voiding Method Urinal Urinal # Voids 2 - Exam Patient not available for exam taken to or for surgery - Labs CBC & Chem 7: 02/24/23 04:48 02/24/23 04:48 Assessment and Plan Assessment: Assessment and plan * Status post fall left hip fracture * Parkinson disease * COPD * Hypertension * BPH * X-ray hip reviewed, orthopedic consulted plan for surgical intervention * Continue patient on Sinemet for Parkinson * Continue metoprolol monitor blood pressure * Continue patient on Flomax monitor for urinary retention * Chart review, plan discussed with RN withfollow-up postoperatively 02/26
[2023-02-25] MEDS: SENNOSIDES-DOCUSATE SODIUM 1 EACH TAB PO SCH (20:56)
[2023-02-26] MEDS: SODIUM CHLORIDE 0.9% 1,000 ML IV SCH ×3 (02:44→08:26)
[2023-02-26] MEDS: ASPIRIN 325 MG TAB PO SCH ×2 (08:26→22:02)
[2023-02-26] MEDS: TAMSULOSIN 0.4 MG CAP.ER.24H PO SCH (08:26)
[2023-02-26] MEDS: PANTOPRAZOLE 40 MG/10 ML VIAL IV SCH (08:26)
[2023-02-26] MEDS: METOPROLOL SUCCINATE (ER) 25 MG TAB.ER.24H PO SCH (08:26)
[2023-02-26] MEDS: MIDODRINE 5 MG TAB PO SCH ×3 (08:26→22:02)
[2023-02-26] MEDS: EZETIMIBE 10 MG TAB PO SCH (08:26)
[2023-02-26] MEDS: CARBIDOPA-LEVODOPA 25-100 MG 1 EACH TAB PO SCH ×3 (08:27→22:01)
[2023-02-26] MEDS ORDERED: ATORVASTATIN 10 MG TAB PO SCH (09:00)
[2023-02-26] MEDS: SYMBICORT 160-4.5 MCG INHALER INHALATION SCH (09:05)
[2023-02-26] MEDS: IPRATROPIUM-ALBUTEROL 3 ML NEB INHALATION SCH ×4 (09:05→20:22)
[2023-02-26 10:53] LABS: Basophils # (A) 0.05 X 10*3/uL (0.00-0.10); Basophils % (A) 0.3 %; Eosinophils # (A) 0.28 X 10*3/uL (0.04-0.35); Eosinophils % (A) 1.9 %; HCT 41.1 % (39.6-50.0); HGB 13.3 d/dL (13.0-17.0); Lymphocytes # (A) 1.49 X 10*3/uL (0.90-5.00); Lymphocytes % (A) 9.9 %; MCH 29.4 pg (27.0-32.0); MCHC 32.4 d/dL (32.0-37.0); MCV 90.9 FL (80.0-97.0); Mean Platelet Volume 11.4 FL (9.5-12.2); Monocytes # (A) 1.19 X 10*3/uL (0.20-1.00); Monocytes % (A) 7.9 %; NRBC Per 100 WBC 0 X 10*3/uL (0.00-0.01); Neutrophils # (A) 11.91 X 10*3/uL (1.80-7.70); Neutrophils % (A) 79.5 %; Platelet Count 219 X 10*3/uL (140-440); RBC 4.52 X 10*6/uL (4.40-5.60); RDW 13.4 % (11.5-14.5); WBC 14.99 X 10*3/uL (4.50-10.00)
--- NOTE | 2023-02-26 10:54 | P.PN ---
Subjective Progress Note Date: 02/26/23 This is an 82-year-old male who is status post left hip hemiarthroplasty. This is postoperative day #1 and patient is seen and evaluated at bedside today. Patient states that his pain is well controlled, but he hasn't worked with physical therapy yet. Objective - Vital Signs Vital signs: Vital Signs Temp 98.2 F 02/26/23 07:33 Pulse 89 02/26/23 09:18 Resp 18 02/26/23 07:33 BP 138/72 02/26/23 07:33 Pulse Ox 94 L 02/26/23 09:05 FiO2 Intake & Output 02/25/23 02/26/23 02/26/23 18:59 06:59 18:59 Intake Total 650 1010 Output Total 75 Balance 575 1010 Weight 70.76 kg Intake: IV 650 Intake, IV Titration 770 Amount Sodium Chloride 0.9% 1, 720 000 ml @ 60 mls/hr IV . [id number] [facility] Rx#:[id number] ceFAZolin 2 gm In Sodium 50 Chloride 0.9% 50 ml @ 100 mls/hr IVPB Q8HR [facility] Rx# :[id number] Oral 240 Output: Estimated Blood Loss 75 Other: Voiding Method Urinal # Voids 3 3 1 - Exam Vital signs are stable. Patient is in no acute distress and is alert and oriented 3. Calf is soft and nontender to palpation. Dressing is clean, dry, and intact. Patient has full foot and ankle motion without pain or difficulty. Sensation intact. Neurovascular status and circulatory status are intact. - Labs CBC & Chem 7: 02/24/23 04:48 02/24/23 04:48 Assessment and Plan Assessment: Status post left hip hemiarthroplasty. (1) Closed left hip fracture Current Visit: Yes Status: Acute Code(s): S72.002A - FRACTURE OF UNSP PART OF NECK OF LEFT FEMUR, INIT SNOMED Code(s): 208277289 (2) Fall Current Visit: Yes Status: Acute Code(s): W19.XXXA - UNSPECIFIED FALL, INITIAL ENCOUNTER SNOMED Code(s): 9218963 Plan: Continue routine postop care and pain control. Continue hip dislocation precautions and use of abductor pillow for 6 weeks. Continue anticoagulation with aspirin. Weightbearing as tolerated with a walker. Leave dressing in place for 7 days. Appreciate input from internal medicine. Anticipate discharge home or to the ECF for the next 24-48 hours.
[2023-02-26 11:07] LABS: Blood Urea Nitrogen 19.8 mg/dL (9.0-27.0); Calcium 8.7 mg/dL (8.7-10.3); Carbon Dioxide 25.7 mmol/L (21.6-31.8); Chloride 106 mmol/L (96-109); Glucose 100 mg/dL (70-110); Potassium 4.7 mmol/L (3.5-5.5); Sodium 140 mmol/L (135-145)
[2023-02-26] MEDS: HYDROcodone/APAP 7.5-325MG 1 EACH TAB PO PRN (16:43)
--- NOTE | 2023-02-26 20:33 | P.PN ---
Progress Note - Text Progress Note Date: 02/26/23 - Chief Complaint Status post fall hip fracture - History of Present Illness * 82-year-old gentleman with past medical history of Parkinson, hypertension, hyperlipidemia, COPD presented to the emergency department after a fall and left hip fracture * Patient said he was in kitchen when he turned around and fell have gait imbalance. Patient says normally he is pretty independent and does not use any devices * Workup initiated in ER included x-ray of hip and chest x-ray, x-ray hip showed left femur fracture * Basic metabolic panel obtained showed mild hyponatremia and hyperkalemia * CBC obtained showed white cell count of 23.1 likely reactive * Patient admitted under orthopedic service for left hip fracture repair 02/26/2023: I resumed care of the patient today. Sitting up in a chair. Eating well. Pain control. Patient does stand up with a walker. Had some wheezing.. On bronchodilator. Active Medications Hydrocodone Bitart/Acetaminophen (Hydrocodone/Apap 7.5-325mg 1 Each Tab) 1 each PO Q6H PRN PRN Reason: Pain Scale 1 to 5 Last Admin: 02/25/23 21:06 Dose: 1 each Hydrocodone Bitart/Acetaminophen (Hydrocodone/Apap 7.5-325mg 1 Each Tab) 2 each PO Q6H PRN PRN Reason: Pain Scale 6 to 10 Last Admin: 02/26/23 16:43 Dose: 2 each Albuterol/Ipratropium (Ipratropium-Albuterol 3 Ml Neb) 3 ml INHALATION RT-QID PRN PRN Reason: Shortness Of Breath Or Wheezing Last Admin: 02/24/23 10:25 Dose: 3 ml Albuterol/Ipratropium (Ipratropium-Albuterol 3 Ml Neb) 3 ml INHALATION RT-QID [facility] Last Admin: 02/26/23 20:22 Dose: 3 ml Aspirin (Aspirin 325 Mg Tab) 325 mg PO BID [facility] Last Admin: 02/26/23 08:26 Dose: 325 mg Atorvastatin Calcium (Atorvastatin 10 Mg Tab) 10 mg PO MOWEFR [facility] Last Admin: 02/26/23 08:26 Dose: 10 mg Budesonide/Formoterol Fumarate (Symbicort 160-4.5 Mcg Inhaler) 2 puff INHALATION RT-DAILY@1200 [facility] Last Admin: 02/26/23 09:05 Dose: 2 puff Carbidopa/Levodopa (Carbidopa-Levodopa 25-100 Mg 1 Each Tab) 1 each PO TID [facility] Last Admin: 02/26/23 16:44 Dose: 1 each Ezetimibe (Ezetimibe 10 Mg Tab) 10 mg PO DAILY [facility] Last Admin: 02/26/23 08:26 Dose: 10 mg Hydromorphone HCl (Hydromorphone 0.5 Mg/0.5 Ml Syringe) 0.125 mg IVP Q3HR PRN PRN Reason: Pain Scale 1 to 3 Hydromorphone HCl (Hydromorphone 0.5 Mg/0.5 Ml Syringe) 0.5 mg IVP Q3HR PRN PRN Reason: Pain Scale 7 to 10 Last Admin: 02/25/23 11:46 Dose: 0.5 mg Hydromorphone HCl (Hydromorphone 0.5 Mg/0.5 Ml Syringe) 0.25 mg IVP Q3HR PRN PRN Reason: Pain Scale 4 to 6 Magnesium Hydroxide (Magnesium Hydroxide 2,400 Mg/30 Ml Cup) 2,400 mg PO DAILY PRN PRN Reason: Constipation Metoprolol Succinate (Metoprolol Succinate (Er) 25 Mg Tab.Er.24h) 12.5 mg PO DAILY [facility] Last Admin: 02/26/23 08:26 Dose: 12.5 mg Midodrine (Midodrine 5 Mg Tab) 2.5 mg PO TID [facility] Last Admin: 02/26/23 16:44 Dose: 2.5 mg Morphine Sulfate (Morphine Sulfate 4 Mg/Ml Syringe) 4 mg IV Q4HR PRN PRN Reason: Severe Pain (Scale 7 to 10) Naloxone HCl (Naloxone 0.4 Mg/Ml 1 Ml Vial) 0.2 mg IV Q2M PRN PRN Reason: Opioid Reversal Ondansetron HCl (Ondansetron 4 Mg/2 Ml Vial) 4 mg IVP Q8HR PRN PRN Reason: Nausea And Vomiting Senna/Docusate Sodium (Sennosides-Docusate Sodium 1 Each Tab) 2 each PO HS [facility] Last Admin: 02/25/23 20:56 Dose: 2 each Tamsulosin HCl (Tamsulosin 0.4 Mg Cap.Er.24h) 0.4 mg PO DAILY [facility] Last Admin: 02/26/23 08:26 Dose: 0.4 mg Past Medical History Past Medical History: Cancer, COPD, Hyperlipidemia, Hypertension Additional Past Medical History / Comment(s): Parkinson's disease History of Any Multi-Drug Resistant Organisms: None Reported Past Surgical History: Heart Catheterization Additional Past Surgical History / Comment(s): breast removal Smoking Status: Former smoker Past Alcohol Use History: Occasional Past Drug Use History: None Reported Medications and Allergies Home Medications Medication Instructions Recorded Confirmed Type Aspirin EC [Ecotrin Low Dose] 81 mg PO MOWEFR 02/23/23 02/23/23 History Atorvastatin [Lipitor] 10 mg PO MOWEFR 02/23/23 02/23/23 History Carbidopa-Levodopa 25-100 mg 1 tab PO TID 02/23/23 02/23/23 History [Sinemet 25-100] D-Mannose Supplement (Unkown 1 tab PO DAILY 02/23/23 02/23/23 History Strength) Ezetimibe [Zetia] 10 mg PO DAILY 02/23/23 02/23/23 History Fluticasone Propion/Salmeterol 2 puff INHALATION RT-DAILY@1200 02/23/23 02/23/23 History [Fluticasone-Salmeterol 500-50] Ipratropium Nebulized [Atrovent 0.5 mg INHALATION RT-QID PRN 02/23/23 02/23/23 History Nebulized 0.2 MG/ML] Magnesium 250 mg PO MOWEFR 02/23/23 02/23/23 History Metoprolol Succinate [Metoprolol 12.5 mg PO DAILY 02/23/23 02/23/23 History Succinate ER] Midodrine HCl [ProAmantine] 2.5 mg PO TID 02/23/23 02/23/23 History Tamsulosin [Flomax] 0.4 mg PO DAILY 02/23/23 02/23/23 History Ubidecarenone [Coenzyme Q10] 100 mg PO DAILY 02/23/23 02/23/23 History Allergies Allergy/AdvReac Type Severity Reaction Status Date / Time No Known Allergies Allergy Verified 02/23/23 20:33 Vitals: Vital Signs Temp Pulse Pulse Resp BP BP Pulse Ox 02/24/23 13:27 98.3 F 76 16 113/50 90 L 02/24/23 10:36 80 02/24/23 10:27 76 02/24/23 08:21 95 02/24/23 07:00 98.1 F 74 16 139/70 94 L 02/24/23 02:00 99.0 F 67 16 137/65 96 02/23/23 21:31 75 20 108/88 02/23/23 21:04 98.1 F 74 18 163/80 94 L 02/23/23 18:28 65 18 158/88 96 02/23/23 16:31 98.0 F 66 18 145/77 96 Intake and Output 02/23/23 02/24/23 02/24/23 22:59 06:59 14:59 Intake Total 600 Output Total 375 Balance 600 -375 Intake: Intake, IV Titration 600 Amount Sodium Chloride 0.9% 1, 600 000 ml @ 75 mls/hr IV . [id number] [facility] Rx#:[id number] Output: Urine 375 Other: Voiding Method Urinal # Voids 2 Weight 70.76 kg On examination: VITAL SIGNS: [97.6, 66, 19, 112 x 64, 96% room air] GENERAL APPEARANCE: Sitting up in a chair. Awake, comfortable HEENT: Normal external appearance of nose and ear. Oral cavity normal EYES: Pupils equal. Conjunctiva normal. NECK: JVD not raised. Mass not palpable. RESPIRATORY: Respiratory effort normal. Lungs clear to auscultation. CARDIOVASCULAR: First and second sounds normal. No edema. ABDOMEN: Soft. Liver and spleen not palpable. No tenderness. No mass palpable. PSYCHIATRY: Alert and oriented x3. Mood and affect normal. MUSCULAR skeletal: Evidence of OA. Dressing over the left hip incision site INVESTIGATIONS, reviewed in the clinical context: February 26: White count 14.9 hemoglobin 13.3 platelets 219 sodium 140 potassium 4.7 crit and 1.1 02/24/23 04:48 Labs: Abnormal Lab Results - Last 24 Hours (Table) 02/23/23 02/23/23 02/24/23 Range/Units 18:31 18:31 04:48 WBC 23.1 H 17.07 H (3.8-10.6) k/uL Neutrophils # 19.7 H 13.66 H (1.3-7.7) k/uL Monocytes # 1.08 H (0.20-1.00) X 10*3/uL Sodium 133 L (137-145) mmol/L Potassium 5.3 H (3.5-5.1) mmol/L BUN 27 H (9-20) mg/dL BUN/Creatinine Ratio (12.00-20.00) Ratio Glucose (70-110) mg/dL Total Bilirubin 1.4 H (0.2-1.3) mg/dL Total Protein (6.2-8.2) d/dL Albumin (3.8-4.9) d/dL 02/24/23 Range/Units 04:48 WBC (3.8-10.6) k/uL Neutrophils # (1.3-7.7) k/uL Monocytes # (0.20-1.00) X 10*3/uL Sodium (137-145) mmol/L Potassium (3.5-5.1) mmol/L BUN (9-20) mg/dL BUN/Creatinine Ratio 21.67 H (12.00-20.00) Ratio Glucose 69 L (70-110) mg/dL Total Bilirubin (0.2-1.3) mg/dL Total Protein 5.2 L (6.2-8.2) d/dL Albumin 3.5 L (3.8-4.9) d/dL Assessment and plan: -Left hip fracture secondary to fall. Left hip hemiarthroplasty by Dr. Dilip Quiros on 02/25/2023. -Idiopathic Parkinson's disease: Sinemet. -COPD Sodium was on salmeterol. Albuterol. -BPH Flomax -Hyperlipidemia Lipitor -Essential hypertension Toprol XL 12.5 mg a day -Hypotension Midodrine 2.5 mg 3 times a day Discussed with patient. Continue current medications.
[2023-02-26] MEDS ORDERED: NON FORMULARY DRUG (Aspirin Ec 81 MG Tablet) PO SCH (20:45)
[2023-02-26] MEDS: SENNOSIDES-DOCUSATE SODIUM 1 EACH TAB PO SCH (22:01)
[2023-02-27] MEDS: IPRATROPIUM-ALBUTEROL 3 ML NEB INHALATION SCH ×3 (07:39→15:20)
[2023-02-27] MEDS: SYMBICORT 160-4.5 MCG INHALER INHALATION SCH (07:39)
[2023-02-27] MEDS: CARBIDOPA-LEVODOPA 25-100 MG 1 EACH TAB PO SCH (08:38)
[2023-02-27] MEDS: METOPROLOL SUCCINATE (ER) 25 MG TAB.ER.24H PO SCH (08:38)
[2023-02-27] MEDS: TAMSULOSIN 0.4 MG CAP.ER.24H PO SCH (08:38)
[2023-02-27] MEDS: EZETIMIBE 10 MG TAB PO SCH (08:38)
[2023-02-27] MEDS: ASPIRIN 325 MG TAB PO SCH (08:38)
[2023-02-27] MEDS: HYDROcodone/APAP 7.5-325MG 1 EACH TAB PO PRN (08:39)
[2023-02-27] MEDS: MIDODRINE 5 MG TAB PO SCH (08:41)
[2023-02-27 09:16] VITALS: RESP 18; TEMP 97.4
--- NOTE | 2023-02-27 11:45 | P.DS ---
Providers Date of admission: 02/23/23 20:15 Expected date of discharge: 02/27/23 Attending physician: Dilip Quiros Consults: 02/23/23 20:13 Consult Physician Routine Consulting Provider: Kenrick Hall Consult Reason/Comments: med Do you want consulting provider notified?: Yes Primary care physician: Elaine Sky - Discharge Diagnosis(es) (1) Closed left hip fracture Patient was admitted to the OR on 02/25/23 to undergo a left hip hemiarthroplasty for left hip fracture. He desired to proceed with elective surgery after given informed consent. He underwent the above procedure which he tolerated well without complication. Postoperative hospital course has remained without complication. On day of discharge he is afebrile, vital signs stable, labs within acceptable ranges, tolerating by mouth meds and diet, voiding without difficulty, positive flatus, denies abdominal pain or calf pain, pain is controlled on oral pain medication and has no new complaints. Wound is benign, neurovascular status is intact, calf is soft and nontender, abdomen soft and nontender. Review of systems is negative for numbness, tingling, fever, chills, chest pain, shortness of breath, nausea, vomiting, dizziness, headaches, slurred speech or other. Current Visit: Yes Status: Acute Priority: Medium Procedures: Left Hip Rivas Patient Condition at Discharge: Good Plan - Discharge Summary Discharge Rx Participant: No New Discharge Prescriptions: New Ipratropium-Albuterol Nebulize [Duoneb 0.5 mg-3 mg/3 ml Soln] 3 ml INHALATION BID each Aspirin [Adult Low Dose Aspirin EC] 81 mg PO BID #60 tab Docusate [Colace] 100 mg PO BID #60 capsule Ondansetron [Zofran] 4 mg PO Q8HR PRN #21 tab PRN Reason: Nausea HYDROcodone/APAP 7.5-325MG [Timber 7.5-325] 1 - 2 each PO Q6HR PRN #42 tab PRN Reason: Pain Continue D-Mannose Supplement (Unkown Strength) 1 tab PO DAILY Magnesium 250 mg PO MOWEFR Tamsulosin [Flomax] 0.4 mg PO DAILY Metoprolol Succinate [Metoprolol Succinate ER] 12.5 mg PO DAILY Ezetimibe [Zetia] 10 mg PO DAILY Ipratropium Nebulized [Atrovent Nebulized 0.2 MG/ML] 0.5 mg INHALATION RT-QID PRN PRN Reason: Shortness Of Breath Ubidecarenone [Coenzyme Q10] 100 mg PO DAILY Fluticasone Propion/Salmeterol [Fluticasone-Salmeterol 500-50] 2 puff INHALATION RT-DAILY@1200 Aspirin EC [Ecotrin Low Dose] 81 mg PO MOWEFR Midodrine HCl [ProAmantine] 2.5 mg PO TID Atorvastatin [Lipitor] 10 mg PO MOWEFR Carbidopa-Levodopa 25-100 mg [Sinemet 25-100 mg] 1 tab PO TID Discharge Medication List Aspirin EC [Ecotrin Low Dose] 81 mg PO MOWEFR 02/23/23 [History] Atorvastatin [Lipitor] 10 mg PO MOWEFR 02/23/23 [History] Carbidopa-Levodopa 25-100 mg [Sinemet 25-100 mg] 1 tab PO TID 02/23/23 [History] D-Mannose Supplement (Unkown Strength) 1 tab PO DAILY 02/23/23 [History] Ezetimibe [Zetia] 10 mg PO DAILY 02/23/23 [History] Fluticasone Propion/Salmeterol [Fluticasone-Salmeterol 500-50] 2 puff INHALATION RT-DAILY@1200 02/23/23 [History] Ipratropium Nebulized [Atrovent Nebulized 0.2 MG/ML] 0.5 mg INHALATION RT-QID PRN 02/23/23 [History] Magnesium 250 mg PO MOWEFR 02/23/23 [History] Metoprolol Succinate [Metoprolol Succinate ER] 12.5 mg PO DAILY 02/23/23 [History] Midodrine HCl [ProAmantine] 2.5 mg PO TID 02/23/23 [History] Tamsulosin [Flomax] 0.4 mg PO DAILY 02/23/23 [History] Ubidecarenone [Coenzyme Q10] 100 mg PO DAILY 02/23/23 [History] Aspirin [Adult Low Dose Aspirin EC] 81 mg PO BID #60 tab 02/27/23 [Rx] Docusate [Colace] 100 mg PO BID #60 capsule 02/27/23 [Rx] HYDROcodone/APAP 7.5-325MG [Timber 7.5-325] 1 - 2 each PO Q6HR PRN #42 tab 02/27/23 [Rx] Ipratropium-Albuterol Nebulize [Duoneb 0.5 mg-3 mg/3 ml Soln] 3 ml INHALATION BID each 02/27/23 [Rx] Ondansetron [Zofran] 4 mg PO Q8HR PRN #21 tab 02/27/23 [Rx] Follow up Appointment(s)/Referral(s): Elaine Sky MD [Primary Care Provider] - 1 Week Dilip Quiros MD [STAFF PHYSICIAN] - 03/14/23 2:30 pm Activity/Diet/Wound Care/Special Instructions: Weight bear as tolerated May shower after 3 days if no bleeding Keep wound clean and dry Take meds as directed F/U with Dr. Quiros in office Discharge Disposition: TRANSFER TO SNF/ECF
--- NOTE | 2023-02-27 15:04 | P.PN ---
Progress Note - Text Progress Note Date: 02/27/23 - Chief Complaint Status post fall hip fracture - History of Present Illness * 82-year-old gentleman with past medical history of Parkinson, hypertension, hyperlipidemia, COPD presented to the emergency department after a fall and left hip fracture * Patient said he was in kitchen when he turned around and fell have gait imbalance. Patient says normally he is pretty independent and does not use any devices * Workup initiated in ER included x-ray of hip and chest x-ray, x-ray hip showed left femur fracture * Basic metabolic panel obtained showed mild hyponatremia and hyperkalemia * CBC obtained showed white cell count of 23.1 likely reactive * Patient admitted under orthopedic service for left hip fracture repair 02/26/2023: I resumed care of the patient today. Sitting up in a chair. Eating well. Pain control. Patient does stand up with a walker. Had some wheezing.. On bronchodilator. 02/27/2023: Reclining in bed. Comforter. Some pain at the operative site. Eating well. No new issues. Breathing better. He'll be discharged to rehab at [facility] today.. Active Medications Hydrocodone Bitart/Acetaminophen (Hydrocodone/Apap 7.5-325mg 1 Each Tab) 1 each PO Q6H PRN PRN Reason: Pain Scale 1 to 5 Last Admin: 02/27/23 08:39 Dose: 1 each Hydrocodone Bitart/Acetaminophen (Hydrocodone/Apap 7.5-325mg 1 Each Tab) 2 each PO Q6H PRN PRN Reason: Pain Scale 6 to 10 Last Admin: 02/26/23 16:43 Dose: 2 each Albuterol/Ipratropium (Ipratropium-Albuterol 3 Ml Neb) 3 ml INHALATION RT-QID PRN PRN Reason: Shortness Of Breath Or Wheezing Last Admin: 02/24/23 10:25 Dose: 3 ml Albuterol/Ipratropium (Ipratropium-Albuterol 3 Ml Neb) 3 ml INHALATION RT-QID [facility] Last Admin: 02/27/23 11:24 Dose: 3 ml Aspirin (Aspirin 325 Mg Tab) 325 mg PO BID [facility] Last Admin: 02/27/23 08:38 Dose: 325 mg Atorvastatin Calcium (Atorvastatin 10 Mg Tab) 10 mg PO MOWEFR [facility] Last Admin: 02/26/23 08:26 Dose: 10 mg Budesonide/Formoterol Fumarate (Symbicort 160-4.5 Mcg Inhaler) 2 puff INHALATION RT-DAILY@1200 [facility] Last Admin: 02/27/23 07:39 Dose: 2 puff Carbidopa/Levodopa (Carbidopa-Levodopa 25-100 Mg 1 Each Tab) 1 each PO TID [facility] Last Admin: 02/27/23 08:38 Dose: 1 each Ezetimibe (Ezetimibe 10 Mg Tab) 10 mg PO DAILY [facility] Last Admin: 02/27/23 08:38 Dose: 10 mg Hydromorphone HCl (Hydromorphone 0.5 Mg/0.5 Ml Syringe) 0.125 mg IVP Q3HR PRN PRN Reason: Pain Scale 1 to 3 Hydromorphone HCl (Hydromorphone 0.5 Mg/0.5 Ml Syringe) 0.5 mg IVP Q3HR PRN PRN Reason: Pain Scale 7 to 10 Last Admin: 02/25/23 11:46 Dose: 0.5 mg Hydromorphone HCl (Hydromorphone 0.5 Mg/0.5 Ml Syringe) 0.25 mg IVP Q3HR PRN PRN Reason: Pain Scale 4 to 6 Magnesium Hydroxide (Magnesium Hydroxide 2,400 Mg/30 Ml Cup) 2,400 mg PO DAILY PRN PRN Reason: Constipation Last Admin: 02/27/23 08:39 Dose: 2,400 mg Metoprolol Succinate (Metoprolol Succinate (Er) 25 Mg Tab.Er.24h) 12.5 mg PO DAILY [facility] Last Admin: 02/27/23 08:38 Dose: 12.5 mg Midodrine (Midodrine 5 Mg Tab) 2.5 mg PO TID [facility] Last Admin: 02/27/23 08:41 Dose: 2.5 mg Morphine Sulfate (Morphine Sulfate 4 Mg/Ml Syringe) 4 mg IV Q4HR PRN PRN Reason: Severe Pain (Scale 7 to 10) Naloxone HCl (Naloxone 0.4 Mg/Ml 1 Ml Vial) 0.2 mg IV Q2M PRN PRN Reason: Opioid Reversal Ondansetron HCl (Ondansetron 4 Mg/2 Ml Vial) 4 mg IVP Q8HR PRN PRN Reason: Nausea And Vomiting Senna/Docusate Sodium (Sennosides-Docusate Sodium 1 Each Tab) 2 each PO HS [facility] Last Admin: 02/26/23 22:01 Dose: 2 each Tamsulosin HCl (Tamsulosin 0.4 Mg Cap.Er.24h) 0.4 mg PO DAILY [facility] Last Admin: 02/27/23 08:38 Dose: 0.4 mg Past Medical History Past Medical History: Cancer, COPD, Hyperlipidemia, Hypertension Additional Past Medical History / Comment(s): Parkinson's disease History of Any Multi-Drug Resistant Organisms: None Reported Past Surgical History: Heart Catheterization Additional Past Surgical History / Comment(s): breast removal Smoking Status: Former smoker Past Alcohol Use History: Occasional Past Drug Use History: None Reported Medications and Allergies Home Medications Medication Instructions Recorded Confirmed Type Aspirin EC [Ecotrin Low Dose] 81 mg PO MOWEFR 02/23/23 02/23/23 History Atorvastatin [Lipitor] 10 mg PO MOWEFR 02/23/23 02/23/23 History Carbidopa-Levodopa 25-100 mg 1 tab PO TID 02/23/23 02/23/23 History [Sinemet 25-100] D-Mannose Supplement (Unkown 1 tab PO DAILY 02/23/23 02/23/23 History Strength) Ezetimibe [Zetia] 10 mg PO DAILY 02/23/23 02/23/23 History Fluticasone Propion/Salmeterol 2 puff INHALATION RT-DAILY@1200 02/23/23 02/23/23 History [Fluticasone-Salmeterol 500-50] Ipratropium Nebulized [Atrovent 0.5 mg INHALATION RT-QID PRN 02/23/23 02/23/23 History Nebulized 0.2 MG/ML] Magnesium 250 mg PO MOWEFR 02/23/23 02/23/23 History Metoprolol Succinate [Metoprolol 12.5 mg PO DAILY 02/23/23 02/23/23 History Succinate ER] Midodrine HCl [ProAmantine] 2.5 mg PO TID 02/23/23 02/23/23 History Tamsulosin [Flomax] 0.4 mg PO DAILY 02/23/23 02/23/23 History Ubidecarenone [Coenzyme Q10] 100 mg PO DAILY 02/23/23 02/23/23 History Allergies Allergy/AdvReac Type Severity Reaction Status Date / Time No Known Allergies Allergy Verified 02/23/23 20:33 Vitals: Vital Signs Temp Pulse Pulse Resp BP BP Pulse Ox 02/24/23 13:27 98.3 F 76 16 113/50 90 L 02/24/23 10:36 80 02/24/23 10:27 76 02/24/23 08:21 95 02/24/23 07:00 98.1 F 74 16 139/70 94 L 02/24/23 02:00 99.0 F 67 16 137/65 96 02/23/23 21:31 75 20 108/88 02/23/23 21:04 98.1 F 74 18 163/80 94 L 02/23/23 18:28 65 18 158/88 96 02/23/23 16:31 98.0 F 66 18 145/77 96 Intake and Output 02/23/23 02/24/23 02/24/23 22:59 06:59 14:59 Intake Total 600 Output Total 375 Balance 600 -375 Intake: Intake, IV Titration 600 Amount Sodium Chloride 0.9% 1, 600 000 ml @ 75 mls/hr IV . [id number] [facility] Rx#:[id number] Output: Urine 375 Other: Voiding Method Urinal # Voids 2 Weight 70.76 kg On examination: VITAL SIGNS: [97.4, 80, 18, 135/73, 96% room air GENERAL APPEARANCE: Reclining bed, comfortable HEENT: Normal external appearance of nose and ear. Oral cavity normal EYES: Pupils equal. Conjunctiva normal. NECK: JVD not raised. Mass not palpable. RESPIRATORY: Respiratory effort normal. Lungs clear to auscultation. CARDIOVASCULAR: First and second sounds normal. No edema. ABDOMEN: Soft. Liver and spleen not palpable. No tenderness. No mass palpable. PSYCHIATRY: Alert and oriented x3. Mood and affect normal. MUSCULAR skeletal: Evidence of OA. Dressing over the left hip incision site INVESTIGATIONS, reviewed in the clinical context: February 26: White count 14.9 hemoglobin 13.3 platelets 219 sodium 140 potassium 4.7 crit and 1.1 02/24/23 04:48 Labs: Abnormal Lab Results - Last 24 Hours (Table) 02/23/23 02/23/23 02/24/23 Range/Units 18:31 18:31 04:48 WBC 23.1 H 17.07 H (3.8-10.6) k/uL Neutrophils # 19.7 H 13.66 H (1.3-7.7) k/uL Monocytes # 1.08 H (0.20-1.00) X 10*3/uL Sodium 133 L (137-145) mmol/L Potassium 5.3 H (3.5-5.1) mmol/L BUN 27 H (9-20) mg/dL BUN/Creatinine Ratio (12.00-20.00) Ratio Glucose (70-110) mg/dL Total Bilirubin 1.4 H (0.2-1.3) mg/dL Total Protein (6.2-8.2) d/dL Albumin (3.8-4.9) d/dL 02/24/23 Range/Units 04:48 WBC (3.8-10.6) k/uL Neutrophils # (1.3-7.7) k/uL Monocytes # (0.20-1.00) X 10*3/uL Sodium (137-145) mmol/L Potassium (3.5-5.1) mmol/L BUN (9-20) mg/dL BUN/Creatinine Ratio 21.67 H (12.00-20.00) Ratio Glucose 69 L (70-110) mg/dL Total Bilirubin (0.2-1.3) mg/dL Total Protein 5.2 L (6.2-8.2) d/dL Albumin 3.5 L (3.8-4.9) d/dL Assessment and plan: -Left hip fracture secondary to fall. Left hip hemiarthroplasty by Dr. Dilip Quiros on 02/25/2023. -Idiopathic Parkinson's disease: Sinemet. -Primary osteoarthritis Tylenol as needed -COPD Fluticasone- salmeterol. Albuterol. -BPH Flomax -Hyperlipidemia Lipitor -Essential hypertension Toprol XL 12.5 mg a day -Hypotension Midodrine 2.5 mg 3 times a day -Full code Discussed with the patient. Will be discharged to rehab today.
[2023-02-27 15:47] VITALS: BP 118/66; PULSE 95
== END 2023-02-27 15:39 | DRG 522 ==
LOC: EC 16:16 → 4SSUR 20:15
PROVIDERS: ADMIT Orthopaedic Surgery Sports Medicine; ATTEND Orthopaedic Surgery Sports Medicine
PROC: 0SRS0J9 Replacement of Left Hip Joint, Femoral Surface with Synthetic Substitute, Cemented, Open Approach (ICD-10-PCS; principal; 2023-02-25 08:00)
DX: S72.002A Fracture of unspecified part of neck of left femur, initial encounter for closed fracture (principal); E87.1 Hypo-osmolality and hyponatremia; M19.91 Primary osteoarthritis, unspecified site; N40.0 Benign prostatic hyperplasia without lower urinary tract symptoms; R26.9 Unspecified abnormalities of gait and mobility; W01.0XXA Fall on same level from slipping, tripping and stumbling without subsequent striking against object, initial encounter; I95.9 Hypotension, unspecified; Y92.000 Kitchen of unspecified non-institutional (private) residence as the place of occurrence of the external cause; E78.5 Hyperlipidemia, unspecified; E87.5 Hyperkalemia; G20 Parkinson's disease; I10 Essential (primary) hypertension; J44.9 Chronic obstructive pulmonary disease, unspecified; K59.00 Constipation, unspecified; Z79.51 Long term (current) use of inhaled steroids; Z79.82 Long term (current) use of aspirin; Z79.899 Other long term (current) drug therapy; Z87.891 Personal history of nicotine dependence
CPT/HCPCS: 36415; 71045; 73501; 73502; 80048; 80053; 81003; 83605; 83735; 84100; 84484; 85025; 85610; 85730; 93005; 94640; 94760; 96361; 96374; 96375; 99285